=== PATIENT | male | born 1955 | race Caucasian/White ===

== ENCOUNTER 2023-04-17 20:10 | Emergency (ER) | payer OTHER, MEDICARE ==
[~2023-04-17] VITALS: Ht 188 cm; Wt 64.7 kg
[2023-04-17] MEDS ORDERED: albuterol 2.5 MG/3 ML nebule NEB ONE ×2 (20:12→22:55)
[2023-04-17 20:47] LABS: EOSINOPHILS # (AUTO) 0.1 X10'3 (0-0.9); WHITE BLOOD COUNT 5.3 X10'3 (4.5-11.0)
[2023-04-17 20:49] LABS: BASOPHILS # (AUTO) 0.1 X10'3 (0-0.2); BASOPHILS % (AUTO) 2.7 % (0-1); EOSINOPHILS % (AUTO) 1.6 % (0-6); HEMATOCRIT 49.4 % (42.0-52.0); LYMPHOCYTES # (AUTO) 2.1 X10'3 (1.1-4.8); LYMPHOCYTES % (AUTO) 38.6 % (21-51); MEAN CORPUSCULAR HEMOGLOBIN 33.6 PG (27.0-31.0); MEAN CORPUSCULAR HGB CONC 34.3 g/dL (33.0-36.5); MEAN PLATELET VOLUME 7.6 FL (7.4-10.4); MONOCYTES # (AUTO) 0.5 X10'3 (0-0.9); MONOCYTES % (AUTO) 9.5 % (2-12); NEUTROPHILS # (AUTO) 2.5 X10'3 (1.8-7.7); NEUTROPHILS % (AUTO) 47.6 % (42-75); PLATELET COUNT 201 X10'3 (140-440); RED BLOOD COUNT 5.04 X10'6 (4.70-6.10)
[2023-04-17 20:54] LABS: ALANINE AMINOTRANSFERASE 32 U/L (12-78); ALKALINE PHOSPHATASE 77 IU/L (46-116); ANION GAP 18 (8-16); ASPARTATE AMINO TRANSFERASE 38 U/L (10-37); BILIRUBIN,TOTAL 0.4 MG/DL (0.1-1.0); BLOOD UREA NITROGEN 17 MG/DL (7-18); BUN/CREATININE RATIO 17.5 (10.0-20.0); CALCIUM 8.9 MG/DL (8.5-10.1); CHLORIDE 96 MMOL/L (99-107); CREATININE 0.97 MG/DL (0.60-1.10); GLUCOSE 69 MG/DL (70-104); POTASSIUM 3.8 MMOL/L (3.5-5.1); SODIUM 139 MMOL/L (135-145); TOTAL CARBON DIOXIDE 24.8 MMOL/L (24-32); TOTAL PROTEIN 8.2 G/DL (6.4-8.2); eGFR 77 ML/MIN
[2023-04-17 22:21] VITALS: BP 118/73
[2023-04-17 22:22] LABS: THYROID STIMULATING HORMONE 1.42 ulU/ml (0.34-4.50)
[2023-04-17 22:38] LABS: ETHANOL 247 MG/DL (<10)
[2023-04-17 23:03] VITALS: PULSE 97; RESP 20; O2SAT 98
[2023-04-17 23:07] VITALS: PULSE 95; RESP 18; O2SAT 100
[2023-04-18 03:11] LABS: BILIRUBIN,URINE NEGATIVE (Neg); CLARITY,URINE CLEAR (Clear); COLOR,URINE YELLOW (Yellow); GLUCOSE, URINE NEGATIVE (Neg); KETONES,URINE 15 mg/dl (Neg); LEUKOCYTE ESTERASE ,URINE NEGATIVE (Neg); NITRITES, URINE NEGATIVE (Neg); OCCULT BLOOD,URINE NEGATIVE (Neg); PH,URINE 5.5 (4.8-8.0); PROTEIN,URINE 30 mg/dl (Neg); UROBILINOGEN,URINE 0.2 E.U/dL (0.2-1.0)
[2023-04-18] MEDS ORDERED: albuterol 2.5 MG/3 ML nebule NEB PRN (03:15)
[2023-04-18 03:20] LABS: UA COLLECTION TYPE VOIDED
[2023-04-18] MEDS ORDERED: triamcinolone acetonide 40mg/ml inj IM ONE (03:20)
[2023-04-18] MEDS ORDERED: dexamethasone 4mg tablet PO ONE (03:20)
[2023-04-18 03:21] LABS: MUCUS STRANDS MODERATE /LPF (Neg)
[2023-04-18 03:22] LABS: BACTERIA,URINE FEW /HPF (Neg); RBC,URINE 0-2 /HPF (0-2); SQUAMOUS EPITHELIAL CELL,UR FEW /LPF (FEW); WBC,URINE 0-4 /HPF (0-4)
[2023-04-18 03:24] VITALS: PULSE 92; RESP 20; O2SAT 89
[2023-04-18 03:25] LABS: URINE AMPHETAMINE SCREEN NEGATIVE (Neg); URINE BARBITUATE SCREEN NEGATIVE (Neg); URINE BENZODIAZEPINES SCREEN NEGATIVE (Neg); URINE CANNABINOID SCREEN POSITIVE (Neg); URINE COCAINE SCREEN NEGATIVE (Neg); URINE METHADONE SCREEN NEGATIVE (Neg); URINE OPIATE SCREEN NEGATIVE (Neg); URINE PHENCYCLIDINE SCREEN NEGATIVE (Neg)
[2023-04-18 03:33] VITALS: PULSE 97; RESP 18
[2023-04-18] MEDS ORDERED: albuterol 2.5 MG/3 ML nebule NEB SCH (07:00)
[2023-04-18 08:11] VITALS: PULSE 93; RESP 20; O2SAT 89
[2023-04-18 08:21] VITALS: PULSE 94; RESP 16
[2023-04-18 11:09] VITALS: TEMP 97.7
== END 2023-04-18 11:11 | disposition home or self-care (01) ==
LOC: ER 20:11
DX: R45.851 Suicidal ideations (principal); Z20.822 Contact with and (suspected) exposure to COVID-19; F10.129 Alcohol abuse with intoxication, unspecified; F31.9 Bipolar disorder, unspecified; Y90.8 Blood alcohol level of 240 mg/100 ml or more
CPT/HCPCS: 36415; 80053; 80305; 80320; 81001; 84443; 85025; 87811; 94640; 96372; 99285; J3301; 94760